=== PATIENT | female | born 1990 | race Hispanic/Latino ===

== ENCOUNTER 2018-11-17 12:15 | Emergency (ER) | payer MEDICAID, OTHER ==
[~2018-11-17 12:15] MED LIST: CEPH500B PO; HYDR250V8 IM; METR-172 PO; TERC20CR4 VG
== END 2018-11-17 12:49 | disposition home or self-care (01) ==
LOC: EDH 12:15
DX: J06.9 Acute upper respiratory infection, unspecified (principal); M94.0 Chondrocostal junction syndrome [Tietze]